=== PATIENT | female | born 1965 ===

== ENCOUNTER 2018-02-03 05:58 | Inpatient (IN) | payer OTHER ==
[~2018-02-03] VITALS: Ht 160 cm; Wt 78.5 kg
[2018-02-03] VITALS (12 sets, daily range): BP systolic 113–135; BP diastolic 72–84
[2018-02-03] MEDS ORDERED: PREVACID30 M2 ORAL (06:52)
[2018-02-03] MEDS ORDERED: ceFAZolin sod 2 GM in D5W 110 ML IVPB ONE (07:00)
[2018-02-03] MEDS ORDERED: Midazolam 2mg/2ml Inj ONE (07:07)
[2018-02-03] MEDS ORDERED: fentaNYL 100 mcg/2 mL IV ONE (07:07)
[2018-02-03] MEDS ORDERED: Propofol 200mg/20ml IV ONE ×7 (07:08→10:37)
[2018-02-03] MEDS ORDERED: Lidocaine 1% Plain 30 ml INJ ONE (07:08)
[2018-02-03] MEDS ORDERED: Vancomycin 1gm inj IVPB ONE (07:17)
[2018-02-03] MEDS ORDERED: Thrombin 5000 units TOPIC ONE (07:17)
[2018-02-03] MEDS ORDERED: EPINEPHrine 1mg/1ml Amp ONE (07:17)
[2018-02-03] MEDS ORDERED: Bupivacaine 0.5% Inj 30 ml vial INJ ONE (07:18)
[2018-02-03] MEDS ORDERED: Bacitracin 50000 Units Vial ONE (07:18)
[2018-02-03] MEDS ORDERED: Sodium Chloride 10ml vial INJ ONE (07:19)
[2018-02-03] MEDS ORDERED: Zemuron 50mg/5ml Inj IV ONE (07:21)
--- NOTE | 2018-02-03 07:27 | Pre-Procedure Note/Attestation ---
Pre-Procedure Note/Attestation Complete Prior to Procedure Procedure Narrative: anterior cervical discectomy and fusion at C5-6 with instrumentation with possible partial vs complete corpectomy at C5-6 with possible instrumentation at C4-6 Attestation I attest that I discussed the nature of the procedure; its benefits; risks and complications; and alternatives (and the risks and benefits of such alternatives ), prior to the procedure, with the patient (or the patient's legal sales representative printing paper). I attest that, if there was a reasonable possibility of needing a blood transfusion, the patient (or the patient's legal sales representative printing paper) was given the [facility] standardized written summary, pursuant to the Delonte Stonegate Blood Safety Act ([place] Health and Safety Code # 1645, as amended). I attest that I re-evaluated the patient just prior to the surgery and that there has been no change in the patient's H&P, except as documented below: Christ Van MD February 03, 2018 07:27
[2018-02-03] MEDS ORDERED: LR 1000ml ONE (07:30)
[2018-02-03] MEDS ORDERED: Dexamethasone 4mg/ml vial ONE (07:37)
[2018-02-03] MEDS ORDERED: Esmolol 100mg/10ml Inj ONE (08:01)
[2018-02-03] MEDS ORDERED: LR 1000ml 1,000 ML IVLG SCH (08:40)
[2018-02-03] MEDS ORDERED: fentaNYL 100 mcg/2 mL IV PRN (08:45)
[2018-02-03] MEDS ORDERED: Meperidine 50mg/ml Inj(FOR RIGORS ONLY) IVP PRN (08:45)
[2018-02-03] MEDS ORDERED: DiphenhydrAMINE 50mg/ml Inj IVP PRN (08:45)
[2018-02-03] MEDS ORDERED: LORazepam Inj 2mg/ml 1ml IV PRN (08:45)
--- NOTE | 2018-02-03 09:04 | Anethesia Preoperative Eval ---
Anesthesia Pre-op PMH/ROS General Date of Evaluation: February 03, 2018 Time of Evaluation: 07:30 Anesthesiologist: Kaylin ASA Score: ASA 2 Mallampati Score Class I : Soft palate, uvula, fauces, pillars visible Class II: Soft palate, uvula, fauces visible Class III: Soft palate, base of uvula visible Class IV: Only hard plate visible Mallampati Classification: Class III Diagnosis: Cervical raadiculopathy Surgical Procedure: ACDF C5-6 Family History: no anesthesia problems Allergies: Coded Allergies: No Known Allergies (Unverified , 02/03/18) Medications: see eMAR Past Medical History Cardiovascular: Denies: HTN, CAD, NE, valve dz, arrhythmia, other Pulmonary: Denies: asthma, COPD, CHELSEA, other Gastrointestinal/Genitourinary: Reports: GERD; Denies: CRI, ESRD, other Neurologic/Psychiatric: Denies: dementia, CVA, depression/anxiety, TIA, other Endocrine: Denies: DM, hypothyroidism, steroids, other HEENT: Denies: cataract (L), cataract (R), glaucoma, NINILCHIK (L), NINILCHIK (R), other Hematology/Immune: Denies: anemia, DVT, bleeding disorder, other Musculoskeletal/Integumentary: Denies: OA, RA, DJD, DDD, edema, other Other: obesity PMH Narrative: GERD, obesity PSxH Narrative: Kidney stone removal Anesthesia Pre-op Phys. Exam Physician Exam Last Vital Signs Date Time Temp Pulse Resp B/P (MAP) Pulse Ox O2 Delivery O2 Flow Rate FiO2 02/03/18 06:36 97.8 94 20 135/84 94 Room Air 97.8 Constitutional: NAD Neurologic: CN 2-12 intact Cardiovascular: RRR, no M/R/G Respiratory: CTA Gastrointestinal: S/NT/ND Airway Exam Mallampati Score: Class III ROM: limited - Reduced with extension Teeth: intact Anesthesia Pre-op A/P Labs WNL Studies Pre-op Studies: EKG - NSR Risk Assessment & Plan Assessment: 52 yo female with h/o GERD and obesity now for ACDF C5-6 Plan: GETA, Sedline Status Change Before Surgery: No Pre-Antibiotics Drug: Ancef Given Within 1 Hr of Incision: Yes Time Given: 08:00 Delonte Ewing MD February 03, 2018 09:04
--- NOTE | 2018-02-03 09:06 | Immediate Post-Op Evaluation ---
Immediate Post-Op Evalulation Immediate Post-Op Evalulation Procedure: ACDF C5-6 Date of Evaluation: February 03, 2018 Time of Evaluation: 11:15 IV Fluids: 1000 Estimated Blood Loss: 50 Urinary Output: 150 Blood Pressure Systolic: 114 Blood Pressure Diastolic: 79 Pulse Rate: 90 Respiratory Rate: 13 O2 Sat by Pulse Oximetry: 95 Temperature (Fahrenheit): 97.1 Pain Score (1-10): 0 Nausea: No Vomiting: No Complications No complication Patient Status: reacts, patent, extubated, none Hydration Status: adequate Drug: Ancef Given Within 1 Hr of Incision: Yes Time Given: 08:00 Delonte Ewing MD February 03, 2018 09:06
[2018-02-03] MEDS ORDERED: Glycopyrrolate 0.2mg/ml 1ml Vial ONE (09:32)
[2018-02-03] MEDS ORDERED: Neostigmine 1mg/ml 10ml Inj ONE (09:32)
--- NOTE | 2018-02-03 10:44 | Brief Operative Note ---
Immediate Post Operative Note Operative Note Pre-op Diagnosis: CERVICAL MYELORADICULOPATHY Procedure: ACDF C56 Post-op Diagnosis: same as pre-op Findings: consistent w/pre-op dx studies Surgeon: DONG HERNÁNDEZ Rail Car Repairman: JOHN BARAHONA, NURSE METAL TANK ERECTOR Anesthesiologist: MAIRA Anesthesia: general Specimen: yes Complications: none Condition: stable Fluids: 1000 CC Estimated Blood Loss: minimal - 50CC Drains: none Implant(s) used?: Yes Christ Van MD February 03, 2018 10:44
--- NOTE | 2018-02-03 11:50 | Diagnostic Imaging Report ---
Indication: Neck Pain Findings: 5 fluoroscopically obtained images of the cervical spine. Localization followed by anterior fusion at C5-6 demonstrated with a compression plate and screws. Discectomy/prosthesis also noted. IMPRESSION: Intraoperative imaging
--- NOTE | 2018-02-03 11:54 | 48 Hour Post Anesthesia Eval ---
Post Anesthesia Evaluation Procedure: ACDF C5-6 Date of Evaluation: February 03, 2018 Time of Evaluation: 11:50 Blood Pressure Systolic: 123 0: 79 Pulse Rate: 87 Respiratory Rate: 14 Temperature (Fahrenheit): 97 O2 Sat by Pulse Oximetry: 97 Airway: patent Nausea: No Vomiting: No Pain Intensity: 1 Hydration Status: adequate Cardiopulmonary Status: Stable Mental Status/LOC: patient returned to baseline Follow-up Care/Observations: As per surgery Post-Anesthesia Complications: No anesthetic complication Follow-up care needed: N/A Delonte Ewing MD February 03, 2018 11:54
[2018-02-03] MEDS ORDERED: Naloxone 0.4mg/ml Inj IVP PRN (12:30)
[2018-02-03] MEDS ORDERED: Norco 5mg/325mg tab ORAL PRN (12:30)
[2018-02-03] MEDS ORDERED: HYDROcodone/Acetamin 7.5/325 tab ORAL PRN (12:30)
[2018-02-03] MEDS: D5 1/2NS 1,000 ML IV SCH ×2 (12:39→22:42)
--- NOTE | 2018-02-03 14:39 | History and Physical ---
History of Present Illness General Date patient seen: February 03, 2018 Present Illness HPI 52 year old female with hx of CERVICAL MYELORADICULOPATHY admitted for ACDF C56. Postoperatively pt is admitted to medical floor for post op care. Allergies: Coded Allergies: No Known Allergies (Unverified , 02/03/18) Medication History Scheduled Lansoprazole* (Prevacid*), 40 MG ORAL DAILY, (Reported) Patient History Healthcare decision maker TY RUIZS - Resuscitation status Full Code Advanced Directive on File Review of Systems All Other Systems: negative except mentioned in HPI Physical Exam General Appearance: WD/WN, no apparent distress Lines, tubes and drains: peripheral HEENT: normocephalic, atraumatic Neck: non-tender, normal alignment Respiratory/Chest: chest wall non-tender, lungs clear Cardiovascular/Chest: normal peripheral pulses, normal rate Abdomen: normal bowel sounds, non tender Genitourinary/Rectal: normal genital exam Extremities: normal range of motion Last 24 Hour Vital Signs Date Time Temp Pulse Resp B/P (MAP) Pulse Ox O2 Delivery O2 Flow Rate FiO2 02/03/18 12:10 97.2 84 18 127/80 98 Nasal Cannula 2.0 97.2 02/03/18 12:00 97.2 83 17 126/80 98 Nasal Cannula 2.0 97.2 02/03/18 11:54 206.6 87 14 97 02/03/18 11:45 81 16 125/80 98 Simple Mask 6.0 02/03/18 11:35 89 16 124/73 98 Simple Mask 6.0 02/03/18 11:25 89 16 121/72 95 Simple Mask 6.0 02/03/18 11:15 92 16 115/75 95 Simple Mask 10.0 02/03/18 11:11 206.8 90 13 95 02/03/18 11:10 90 16 117/73 95 Simple Mask 10.0 02/03/18 11:05 97.1 91 15 114/79 95 Simple Mask 10.0 97.1 02/03/18 06:36 97.8 94 20 135/84 94 Room Air 97.8 Intake and Output 02/02/18 02/03/18 19:00 07:00 # Voids 1 Height (Feet): 5 Height (Inches): 3.00 Weight (Pounds): 173 Medications Current Medications Medications (Trade) Dose Ordered Sig/Kay Route PRN Reason Start Time Stop Time Status Last Admin Dose Admin Acetaminophen/ Hydrocodone Bitart ([place]ather[place] 5/325) 1 tab Q3H PRN ORAL Mild Pain (Pain Scale 1-3) 02/03/18 12:30 02/10/18 12:29 02/03/18 12:40 Acetaminophen/ Hydrocodone Bitart ([place]ather[place] 7.5/325) 1 tab Q3H PRN ORAL Moderate Pain (Pain Scale 4-6) 02/03/18 12:30 02/10/18 12:29 Acetaminophen/ Hydrocodone Bitart ([place]ather[place] 7.5/325) 2 tab Q3H PRN ORAL Severe Pain (Pain Scale 7-10) 02/03/18 12:30 02/10/18 12:29 Cefazolin Sodium 1 gm/Dextrose 55 ml @ 110 mls/hr Q8H IV 02/03/18 16:00 02/04/18 08:29 Dextrose/Sodium Chloride 1,000 ml @ 100 mls/hr Q10H IV 02/03/18 12:30 03/05/18 12:29 02/03/18 12:39 Docusate Sodium (Colace) 100 mg TWICE A DAY ORAL 02/03/18 18:00 03/05/18 17:59 Naloxone HCl (Narcan) 0.1 mg PRN PRN IVP RR<12/min, pt unarousable 02/03/18 12:30 03/05/18 12:29 Assessment/Plan Problem List: (1) Cervical myelopathy with cervical radiculopathy ICD Codes: M47.12 - Other spondylosis with myelopathy, cervical region SNOMED: [id number] Assessment/Plan symptomatic treatment analgesics dvt prophylaxis clear liquid diet advance to regular. Jonas Waite am, MD February 03, 2018 14:38
[2018-02-03] MEDS: ceFAZolin sod 1 GM in D5W 55 ML IV SCH ×2 (16:10→23:55)
[2018-02-03] MEDS: HYDROcodone/Acetamin 7.5/325 tab ORAL PRN ×2 (16:28→22:38)
[2018-02-03] MEDS: Docusate 100mg cap ORAL SCH (17:30)
--- NOTE | 2018-02-03 19:00 | Operative Note - Dictated ---
DATE OF OPERATION: 02/03/2018 PREOPERATIVE DIAGNOSIS: C5-C6 disk extrusion with stenosis, spinal cord compression, and myeloradiculopathy. POSTOPERATIVE DIAGNOSIS: C5-C6 disk extrusion with stenosis, spinal cord compression, and myeloradiculopathy. PROCEDURE PERFORMED: 1. Anterior cervical interbody arthrodesis at C5-C6. 2. Anterior cervical instrumentation at C5-C6. 3. Implantation of PEEK interbody device at C5-C6. 4. Placement of allograft and local autograft for arthrodesis. SURGEON: Christ Van M.D. CORRESPONDENCE REPRESENTATIVE: Lashonda Peña, nurse event sales assistant. ANESTHESIA: General endotracheal anesthesia ANESTHESIOLOGIST: Delonte Ewing M.D. ESTIMATED BLOOD LOSS: 50 mL. IV ANTIBIOTICS: 2 g of Ancef. COMPLICATIONS: None. BACKGROUND: This is a pleasant female, who has failed nonoperative treatments and option for above treatment was given. Risks, alternatives, and benefits were discussed with the patient at length. The patient wished to proceed. The patient has failed nonoperative treatments. The risks include, but are not limited to anesthesia complications including , medical complications including liver, kidney, cardiopulmonary deficits, bleeding, infection, dysphonia, dysphagia, hematoma of the neck, nerve root injury, paralysis, spinal cord injury, CSF leak, dural tear, fracture of the hardware, loosening of the hardware, need for revision, decompression, and fusion of adjacent levels, swallowing difficulties, esophageal injury, tracheal injury, recurrent laryngeal nerve injury as well as other complications including compartment syndrome. The patient understood and wished to proceed. I went over these risks with the patient. OPERATIVE FINDINGS: Herniated nucleus pulposus with extrusion at C5-C6 with bilateral foraminal stenosis, worse on the right side with a large extruded fragment, right paracentral and intraforaminal, which had also migrated posterior to the C5 vertebral body on the right side. DESCRIPTION OF OPERATION: The patient was brought to the operating room supine on a stretcher. Appropriate IV lines were placed by the anesthesiologist. A 2 g of Ancef was administered. The patient was induced and intubated without complications, was position on the operating room table. MEP, SSEP, and EMG were done. Baselines were done before positioning and after, and remained stable throughout the case. The neck was placed into neutral alignment. The arms were tucked by the side. All bony prominences were well padded as well as the four extremities. Preoperative fluoroscopy revealed the planned incision to be over the C5-C6 interbody space. Fluoroscopy revealed the neck to be in good position. The neck was prepped and draped in the usual sterile fashion. At this point, a horizontal incision was made on the anterior right side of the neck in the crease of the neck. Hemostasis was achieved with bipolar cautery. The platysma was incised in line with the skin incision. Blunt dissection was carried out in the interval between the strap muscles and sternocleidomastoid. Superficial cervical fascia was dissected caudally as well as cephalad. Carotid pulse was palpated and was found to be well lateral to the field of dissection. Deep cervical fascia was encountered and bluntly dissected with Kittners as well as with finger dissection to find the prevertebral space. The longus colli was found on both sides of the spine and subperiosteally dissected. warehouse attendant retractors were set into place. Spinal needle was placed in the C5-C6 interspace, was positively identified, and marked. Throughout the case, the intraoperatively sterilely draped microscope was used. The diskectomy was begun with a #15 scalpel. An incision was made into the anulus and the straight and curved curettes of #1 and #2 Kerrison punches. A radical diskectomy was done at C5-C6. Now with a high-speed drill, a portion of the anterior and more so the posterior aspect of the C5 vertebral body was drilled to the level of the posterior longitudinal ligament for better exposure to the disk herniation. Once this was done, a Microsect #1 curette was used to incise the posterior longitudinal ligament and with #1 Kerrison punches, the posterior longitudinal ligament was removed to find a large herniated nucleus pulposus on the right side, which was partially subligamentous and partially noncontained past the posterior longitudinal ligament. This was removed with suction as well as with a #1 Kerrison punch. Now, with the use of #1 and #2 forward and backward Microsect curettes, the disk fragment, which was behind the vertebral body of C5 was teased out and removed without doing a formal corpectomy at C5. A significant portion of the posterior aspect of C5 vertebral body, however, was removed to gain access to the disk herniation. Now once this was accomplished, attention was diverted to hemostasis. Gelfoam thrombin and FloSeal were used for hemostasis and a complete decompression of the spinal cord, the foramina, the exiting nerve roots, as well as the lateral recess was accomplished. Now, sizing was done with the Spinal Element System and a 7 mm PEEK interbody device x 11 x 14 lordotic, 7 degrees was chosen, was packed with multiple autographs and C5 vertebral body as well as local allograft as well as Lainey allograft, and the implant was carefully tamped into place at C5-C6 with excellent recreation of lordosis and apposition against the endplates. Now, a Storden plate was chosen 10 mm in length and was fixed to the anterior surface of the vertebral bodies at C5 and C6, with 12 mm self-drilling screws, sat well below the locking mechanism. Final AP and lateral fluoroscopy revealed all instrumentation to be in excellent position. The wound was copiously irrigated with triple antibiotic solution. All sponge, needle, and instrument counts were correct, and at this point, 500 mg of vancomycin powder was placed in the prevertebral space. This was done after the wound was copiously irrigated with triple antibiotic solution. There was no bleeding hemostasis was achieved, and now, closure was done with 3-0 Vicryl sutures in the platysmal layer and 4-0 Monocryl for the subcuticular layer. The skin was closed with Dermabond. Sterile dressing tape was placed. All sponge, needle, and instrument counts were correct. There were no complications during the case and the patient was extubated and was taken recovery room in stable condition and found to be neurovascularly intact. Christ Van M.D. DR: WAQAS JOB#: [id number] CC:
[2018-02-04] VITALS: BP 126/83
[2018-02-04 04:00] VITALS: BP 119/72
[2018-02-04 08:00] VITALS: BP 118/80
[2018-02-04] MEDS: D5 1/2NS 1,000 ML IV SCH (08:40)
[2018-02-04] MEDS: ceFAZolin sod 1 GM in D5W 55 ML IV SCH (08:40)
[2018-02-04] MEDS: Docusate 100mg cap ORAL SCH (08:41)
[2018-02-04] MEDS ORDERED: Chloraseptic Spray 20mL Bottle ORAL PRN (09:30)
[2018-02-04] MEDS ORDERED: D5 1/2NS 1000ml IV ONE (12:18)
--- NOTE | 2018-02-04 13:10 | Pulmonology Progress Note ---
Assessment/Plan Problems: (1) Cervical myelopathy with cervical radiculopathy Assessment/Plan improving tolerating diet stephens discontinued dc home with f/u with surgeon Subjective ROS Limited/Unobtainable: No Constitutional: Reports: no symptoms HEENT: Repors: no symptoms Respiratory: Reports: no symptoms Allergies: Coded Allergies: No Known Allergies (Unverified , 02/03/18) Objective Last 24 Hour Vital Signs Date Time Temp Pulse Resp B/P (MAP) Pulse Ox O2 Delivery O2 Flow Rate FiO2 02/04/18 08:00 97.9 87 19 118/80 93 97.9 02/04/18 04:01 Room Air 02/04/18 04:00 97.9 86 18 119/72 93 97.9 02/04/18 00:00 98.1 97 18 126/83 92 98.1 02/03/18 20:00 97.9 96 20 123/82 91 Room Air 97.9 02/03/18 16:00 97.6 94 20 122/81 97 Room Air 97.6 Intake and Output 02/03/18 02/04/18 19:00 07:00 Intake Total 2050 ml 1195 ml Output Total 400 ml 1255 ml Balance 1650 ml -60 ml Intake Oral 400 ml 240 ml IV Total 1650 ml 955 ml Output Urine Total 350 ml 1255 ml Estimated Blood Loss 50 ml General Appearance: WD/WN HEENT: normocephalic, atraumatic Respiratory/Chest: chest wall non-tender, lungs clear Breasts: no masses Cardiovascular: normal peripheral pulses, regular rhythm Abdomen: soft, non tender, no organomegaly Extremities: no clubbing Skin: no rash, no lesions Jonas Norris MD February 04, 2018 13:10
--- NOTE | 2018-02-06 12:59 | Discharge Summary ---
Discharge Summary Hospital Course Date of Admission February 03, 2018 at 05:58 Date of Discharge February 04, 2018 at 12:19 Admitting Diagnosis cervical myeloradiculopathy Reason for Hospitalization: elective surgery HPI Anh Newell is a 52 year old female who was admitted on February 03, 2018 at 05: 58 for Cervical Radiculopathy. She was admitted for elective surgery . Consultations dr Norris Procedures s/p 02/03/[address] Van 1. Anterior cervical interbody arthrodesis at C5-C6. 2. Anterior cervical instrumentation at C5-C6. 3. Implantation of PEEK interbody device at C5-C6. 4. Placement of allograft and local autograft for arthrodesis. Hospital Course status post surgery course of recovery uneventful prophylactic antibiotics provided neurovascular intact dressing clean dry and intact pain management addressed Chloraseptic spray for comfort soft diet as tolerated, [place] collar on. ambulated incentive spirometry ; patient was taught how to use and encouraged to use while in the bed voided freely bowel regimen instituted Patient was stable for discharge discharge instruction provided outpatient follow-up with surgeon as advised FINAL DIAGNOSIS cervical myeloradiculopathy s/p ACDF C5-6 Discharge Medications Continued Medications: Lansoprazole* (Prevacid*) 30 Mg Tab.rap. 40 MG ORAL DAILY, TAB (This prescription has been renewed) Discharge Condition Upon Discharge: stable Discharge Disposition Patient was discharged to Home () Discharge Instructions Discharge Instructions Special Instructions I have been assigned to complete a D/C Summary on this account. I was not involved in the patient management Santa Barrios NP February 06, 2018 12:59
== END 2018-02-04 12:19 | disposition home or self-care (01) | DRG 473 ==
LOC: SDSOVERFLO 05:58 → 3E 12:24
PROC: 01N10ZZ Release Cervical Nerve, Open Approach (ICD-10-PCS; principal; 2018-02-03 07:30)
PROC: 0RB30ZZ Excision of Cervical Vertebral Disc, Open Approach (ICD-10-PCS; principal; 2018-02-03 07:30)
PROC: 0RG10A0 Fusion of Cervical Vertebral Joint with Interbody Fusion Device, Anterior Approach, Anterior Column, Open Approach (ICD-10-PCS; principal; 2018-02-03 07:30)
PROC: 00NW0ZZ Release Cervical Spinal Cord, Open Approach (ICD-10-PCS; principal; 2018-02-03 07:30)
DX: M50.022 Cervical disc disorder at C5-C6 level with myelopathy (principal); M50.122 Cervical disc disorder at C5-C6 level with radiculopathy; M48.02 Spinal stenosis, cervical region; K21.9 Gastro-esophageal reflux disease without esophagitis
CPT/HCPCS: 36415; 72040; 76001; 86850; 86900; 86901; 87081; 94003; 94150; J2250; J2405; J2710